=== PATIENT | female | born 1975 | race Caucasian/White ===

== ENCOUNTER 2016-12-25 14:47 | Outpatient (CLI) | payer MEDICAID | END 2016-12-25 14:48 | disposition home or self-care (01) | DX: M25.511 Pain in right shoulder (principal); M25.811 Other specified joint disorders, right shoulder ==

== ENCOUNTER 2017-11-19 08:00 | Outpatient (CLI) | payer MEDICAID, OTHER ==
[2017-11-19 19:11] LABS: HGB - HEMOGLOBIN 13.2 g/dL (12.0-16.0); MEAN CORPUSCULAR HEMOGLOBIN 30.1 pg (27.0-31.0); MEAN CORPUSCULAR HGB CONC 33.6 g/dL (32.0-36.0); MEAN CORPUSCULAR VOLUME 89.5 fL (81.0-99.0); MEAN PLATELET VOLUME 8.8 fL (7.9-10.8); RED BLOOD COUNT 4.38 10^6/uL (4.20-5.40); RED CELL DISTRIBUTION WIDTH 13.3 % (12.0-15.0); WHITE BLOOD COUNT 6.3 x10^3/uL (4.8-10.8)
[2017-11-19 19:31] LABS: RHEUMATOID FACTOR NEGATIVE (Negative)
[2017-11-19 19:36] LABS: URIC ACID 3.5 mg/dL (2.6-7.2)
== END 2017-11-19 08:01 | disposition home or self-care (01) ==
LOC: LAB.WCP 08:00
PROVIDERS: ATTEND Family Medicine
DX: M25.50 Pain in unspecified joint (principal)
CPT/HCPCS: 36415; 84550; 85651; 86140; 86200; 86430

== ENCOUNTER 2017-12-01 16:34 | Outpatient (CLI) | payer OTHER ==
--- NOTE | 2017-12-02 15:46 | MRI Report ---
EXAM: MRI CERVICAL SPINE WITHOUT CONTRAST EXAM DATE: 12/01/2017 05:06 PM. CLINICAL HISTORY: Cervical disk disorder with myelopathy. COMPARISONS: MRI cervical spine 02/23/2016 TECHNIQUE: Multiplanar, multisequence T1-weighted and fluid-sensitive sequences of the cervical spine without contrast. Other: None. FINDINGS: Neurologic Structures: The visualized posterior fossa structures are unremarkable. No signal abnormal ity in the visualized spinal cord. Alignment: Redemonstration straightening normal cervical lordosis. Grade 1 anterolisthesis C3 on C4 m easuring 3 mm. Bone Marrow: No gross fractures or bone lesions. No marrow edema. Redemonstration congenitally shallow central canal, with canal AP diameter measuring 10 mm at C3-C6 l evels and 11 mm at C7 level. Interspace Levels/Facets: C1-C2: Unremarkable. C2-C3: Moderate to severe left and moderate right facet arthropathy. No significant central canal cr rowing. Mild left foraminal narrowing. No right foraminal narrowing. No interval change. C3-C4: Mild diffuse disk bulge. Severe right facet arthropathy. Mgha-pw-mniwacyb central canal narrow ing with mild flattening of the cord, this is similar to prior study. Mild right foraminal narrowing. No left foraminal narrowing. No definite interval progression. C4-C5: Mild diffuse disk bulge. Xhlb-ye-cbbsquir right facet arthropathy. Hbcf-je-spnjdbfb central ca nal narrowing. No foraminal narrowing. No definite interval progression. C5-C6: Moderate disk height loss and desiccation. Moderate diffuse disk bulge with superimposed centr al disk protrusion measuring approximately 5 mm, slightly progressed, previously 4 mm. Moderate to se asha central canal narrowing with mass effect on flattening of the cord, slightly increased since the prior. Mild bilateral foraminal narrowing, this is similar. C6-C7: Mild diffuse disk bulge. Mild central canal narrowing. No foraminal narrowing. C7-t1: Unremarkable. Musculature: Normal. No edema or fatty atrophy. Other: The paravertebral and prevertebral soft tissues are normal. IMPRESSION: 1. Multilevel degenerative spondylosis, as detailed above and summarized below. Compared to the prior study from 02/23/2016, interval progression at C5-C6 level, which is also the most significant level . These degenerative changes are superimposed on congenitally shallow central canal, with canal AP di ameter measuring 10-11 mm at multiple cervical levels. 2. No acute fracture or malalignment. No bone marrow edema. No cord signal abnormality at any level. 3. C2-C3 level demonstrates no significant central canal narrowing. Mild left foraminal narrowing. No right foraminal narrowing. No interval change. 4. C3-C4 level demonstrates qaao-fh-dypvjcwx central canal narrowing with mild flattening of the cord , this is similar to prior study. Mild right foraminal narrowing. No left foraminal narrowing. No def inite interval progression. 5. C4-C5 level demonstrates vswj-ur-zzildmsj central canal narrowing. No foraminal narrowing. No defi nite interval progression. 6. C5-C6 level demonstrates moderate to severe central canal narrowing with mass effect on flattening of the cord, slightly increased since the prior. Mild bilateral foraminal narrowing, this is similar . 7. C6-C7 level demonstrates mild central canal narrowing. No foraminal narrowing. [facility] Referring Provider Line: [phone] SITE ID: [id number]
== END 2017-12-01 16:35 | disposition home or self-care (01) ==
LOC: DI 16:34
PROVIDERS: ATTEND Family Medicine
DX: M50.222 Other cervical disc displacement at C5-C6 level (principal); M50.31 Other cervical disc degeneration, high cervical region; M47.892 Other spondylosis, cervical region; M43.12 Spondylolisthesis, cervical region
CPT/HCPCS: 72141

== ENCOUNTER 2019-11-07 08:00 | Outpatient (CLI) | payer OTHER ==
[2019-11-07 12:25] LABS: BASOPHILS % (AUTO) 0.3 %; EOSINOPHILS # (AUTO) 0.1 10^3/uL (0.0-0.7); EOSINOPHILS % (AUTO) 1.5 %; HGB - HEMOGLOBIN 13.3 g/dL (12.0-16.0); LYMPHOCYTES # (AUTO) 2.5 10^3/uL (1.5-3.5); LYMPHOCYTES % (AUTO) 35.2 %; MEAN CORPUSCULAR HGB CONC 31.4 g/dL (32.0-36.0); MEAN CORPUSCULAR VOLUME 92.4 fL (81.0-99.0); MEAN PLATELET VOLUME 10.6 fL (7.9-10.8); MONOCYTES # (AUTO) 0.4 10^3/uL (0.0-1.0); NEUTROPHILS # (AUTO) 4.1 10^3/uL (1.5-6.6); NEUTROPHILS % (AUTO) 57.6 %; PLT - PLATELET COUNT 230 10^3/uL (130-450); RED BLOOD COUNT 4.59 10^6/uL (4.20-5.40); RED CELL DISTRIBUTION WIDTH 12.4 % (12.0-15.0); WHITE BLOOD COUNT 7.1 x10^3/uL (4.8-10.8)
[2019-11-07 13:07] LABS: HB2 TOTAL 13.8 g/dL; HEMOGLOBIN A1C 0.51 g/dL; HEMOGLOBIN A1C % 5.5 % (4.6-6.2)
[2019-11-07 13:19] LABS: FERRITIN 56.6 ng/mL (11.0-306.8)
[2019-11-07 13:44] LABS: % IRON SATURATION 19 % (20-50); ALBUMIN 4.1 g/dL (3.2-5.5); ALBUMIN/GLOBULIN RATIO 1.4 (1.0-2.2); ALKALINE PHOSPHATASE 51 IU/L (42-121); ALT ALANINE AMINOTRANSFERASE 14 IU/L (10-60); AST ASPARTATE AMINOTRANSFERASE 14 IU/L (10-42); BILIRUBIN,TOTAL 0.3 mg/dL (0.2-1.0); BUN - BLOOD UREA NITROGEN 13 mg/dL (6-20); CALCIUM 9.2 mg/dL (8.5-10.3); CARBON DIOXIDE - CO2 25 mmol/L (21-32); CHLORIDE 108 mmol/L (101-111); CHOLESTEROL 190 mg/dL; CREATININE 0.9 mg/dL (0.4-1.0); GFR - MDRD 67 (>89); GLUCOSE 107 mg/dL (70-100); HDL CHOLESTEROL 38 mg/dL; IRON 64 ug/dL (28-170); LDL CHOLESTEROL,CALCULATED 101 mg/dL; SODIUM 140 mmol/L (135-145); TOTAL IRON BINDING CAPACITY 330 ug/dL (250-450); TOTAL PROTEIN 7.1 g/dL (6.7-8.2); TRANSFERRIN 236 mg/dL (192-382); VLDL CHOLESTEROL 51 mg/dL
[2019-11-07 13:45] LABS: LDL/HDL RATIO 2.7 (<4.4)
== END 2019-11-07 23:59 | disposition home or self-care (01) ==
LOC: LAB.WCP 08:00
PROVIDERS: ATTEND Family Medicine
DX: I10 Essential (primary) hypertension (principal); E78.5 Hyperlipidemia, unspecified; D64.9 Anemia, unspecified; E66.9 Obesity, unspecified
CPT/HCPCS: 36415; 80053; 80061; 82728; 83036; 83540; 83721; 84443; 84466; 85025

== ENCOUNTER 2020-08-16 10:06 | Outpatient (CLI) | payer OTHER ==
[2020-08-16 10:18] LABS: BASOPHILS % (AUTO) 0.3 %; EOSINOPHILS # (AUTO) 0.1 10^3/uL (0.0-0.7); EOSINOPHILS % (AUTO) 1.9 %; HGB - HEMOGLOBIN 13.1 g/dL (12.0-16.0); LYMPHOCYTES # (AUTO) 2.2 10^3/uL (1.5-3.5); LYMPHOCYTES % (AUTO) 38.8 %; MEAN CORPUSCULAR HEMOGLOBIN 29.1 pg (27.0-31.0); MEAN CORPUSCULAR HGB CONC 32.3 g/dL (32.0-36.0); MEAN PLATELET VOLUME 9.8 fL (7.9-10.8); MONOCYTES # (AUTO) 0.5 10^3/uL (0.0-1.0); MONOCYTES % (AUTO) 8.6 %; NEUTROPHILS # (AUTO) 2.9 10^3/uL (1.5-6.6); NEUTROPHILS % (AUTO) 50.2 %; PLT - PLATELET COUNT 225 10^3/uL (130-450); RED CELL DISTRIBUTION WIDTH 12.2 % (12.0-15.0); WHITE BLOOD COUNT 5.7 x10^3/uL (4.8-10.8)
== END 2020-08-16 10:07 | disposition home or self-care (01) ==
LOC: LAB 10:06
PROVIDERS: ATTEND Orthopaedic Surgery
DX: Z01.812 Encounter for preprocedural laboratory examination (principal)
CPT/HCPCS: 36415; 85025

== ENCOUNTER 2020-11-20 13:38 | Outpatient (CLI) | payer OTHER ==
--- NOTE | 2020-11-20 16:48 | XRAY Report ---
PROCEDURE: Wrist 3 View RT INDICATIONS: R WRIST TENDONITIS TECHNIQUE: 3 views of the wrist were acquired. COMPARISON: None FINDINGS: Bones: No acute fractures or dislocations. No suspicious bony lesions. Mild degenerative changes n oted at the right thumb metacarpophalangeal joint and first carpometacarpal joint. Soft tissues: No suspicious soft tissue calcifications. IMPRESSION: Right wrist without acute fracture or dislocation. Mild degenerative changes of the right thumb metac arpophalangeal joint and first carpometacarpal joint. Reviewed by: Jesus Zambrano MD on 11/20/2020 4:46 PM PDT Approved by: Jesus Zambrano MD on 11/20/2020 4:46 PM PDT Station ID: [id number]
== END 2020-11-20 23:59 | disposition home or self-care (01) ==
LOC: DI.N 13:38
PROVIDERS: ATTEND Physician Assistant Medical
DX: M67.833 Other specified disorders of tendon, right wrist (principal); M18.11 Unilateral primary osteoarthritis of first carpometacarpal joint, right hand

== ENCOUNTER 2021-04-16 08:00 | Outpatient (CLI) | payer OTHER ==
[2021-04-16 18:11] LABS: BASOPHILS % (AUTO) 0.2 %; EOSINOPHILS # (AUTO) 0.1 10^3/uL (0.0-0.7); EOSINOPHILS % (AUTO) 1.5 %; HCT - HEMATOCRIT 37.9 % (37.0-47.0); HGB - HEMOGLOBIN 12.1 g/dL (12.0-16.0); LYMPHOCYTES # (AUTO) 2.4 10^3/uL (1.5-3.5); LYMPHOCYTES % (AUTO) 45.7 %; MEAN CORPUSCULAR HEMOGLOBIN 28.6 pg (27.0-31.0); MEAN CORPUSCULAR HGB CONC 31.9 g/dL (32.0-36.0); MEAN CORPUSCULAR VOLUME 89.6 fL (81.0-99.0); MEAN PLATELET VOLUME 10.6 fL (7.9-10.8); MONOCYTES # (AUTO) 0.3 10^3/uL (0.0-1.0); MONOCYTES % (AUTO) 6.5 %; NEUTROPHILS # (AUTO) 2.4 10^3/uL (1.5-6.6); NEUTROPHILS % (AUTO) 45.9 %; PLT - PLATELET COUNT 260 10^3/uL (130-450); RED BLOOD COUNT 4.23 10^6/uL (4.20-5.40); RED CELL DISTRIBUTION WIDTH 12.8 % (12.0-15.0); WHITE BLOOD COUNT 5.3 x10^3/uL (4.8-10.8)
[2021-04-16 18:39] LABS: % IRON SATURATION 15 % (20-50); ALBUMIN 4.6 g/dL (3.2-5.5); ALBUMIN/GLOBULIN RATIO 1.7 (1.0-2.2); ALKALINE PHOSPHATASE 57 IU/L (42-121); ALT ALANINE AMINOTRANSFERASE 26 IU/L (10-60); AST ASPARTATE AMINOTRANSFERASE 18 IU/L (10-42); BILIRUBIN,TOTAL 0.5 mg/dL (0.2-1.0); BUN - BLOOD UREA NITROGEN 16 mg/dL (6-20); CALCIUM 9.5 mg/dL (8.5-10.3); CARBON DIOXIDE - CO2 24 mmol/L (21-32); CHLORIDE 107 mmol/L (101-111); CHOL/HDL RATIO 3.3 (<4.4); CHOLESTEROL 166 mg/dL; CREATININE 0.8 mg/dL (0.4-1.0); GFR - MDRD 77 (>89); GLUCOSE 89 mg/dL (70-100); HDL CHOLESTEROL 51 mg/dL; IRON 51 ug/dL (28-170); LDL CHOLESTEROL,CALCULATED 78 mg/dL; LDL/HDL RATIO 1.5 (<4.4); SODIUM 139 mmol/L (135-145); TOTAL IRON BINDING CAPACITY 344 ug/dL (250-450); TOTAL PROTEIN 7.3 g/dL (6.7-8.2); TRANSFERRIN 246 mg/dL (192-382); TRIGLYCERIDES 183 mg/dL; VLDL CHOLESTEROL 37 mg/dL
[2021-04-16 18:53] LABS: THYROID STIMULATING HORMONE 1.59 uIU/mL (0.34-5.60)
== END 2021-04-16 23:59 | disposition home or self-care (01) ==
LOC: LAB.WCP 08:00
PROVIDERS: ATTEND Family Medicine
DX: I10 Essential (primary) hypertension (principal); E78.5 Hyperlipidemia, unspecified; D64.9 Anemia, unspecified; R53.83 Other fatigue
CPT/HCPCS: 36415; 80053; 80061; 82607; 82728; 83540; 83721; 84443; 84466; 85025

== ENCOUNTER 2021-07-24 13:21 | Outpatient (CLI) | payer OTHER ==
--- NOTE | 2021-07-25 09:21 | Mammography Report ---
BILATERAL DIGITAL SCREENING MAMMOGRAM 3D/2D: 07/24/2021 CLINICAL: Routine screening. Comparison is made to exams dated: 09/05/2016 mammogram - [facility] and 05/25/2015 mammogram - [facility]. There are scattered fibroglandular elements in both breasts. No significant masses, calcifications, or other findings are seen in either breast. There has been no significant interval change. IMPRESSION: NEGATIVE There is no mammographic evidence of malignancy. A 1 year screening mammogram is recommended. This exam was interpreted at Station ID: [id number]. NOTE: For mammograms, a report in lay terms will be sent to the patient. Approximately 15% of breast malignancies will not be visualized mammographically. In the management of a palpable breast mass, a negative mammogram must not discourage biopsy of a clinically suspicious lesion. Electronically Signed By: Kian Burks M.D. ar/penrad:07/24/2021 15:30:29 ACR BI-RADS Category 1: Negative 3341F PARENCHYMAL PATTERN: (A) - The breast(s) demonstrate(s) scattered fibroglandular densities. BI-RADS CATEGORY: (1) - 1 RECOMMENDATION: (ANNUAL) - Recommend routine annual screening mammography. [id number] 1 year screening LATERALITY: (B)
== END 2021-07-24 13:22 | disposition home or self-care (01) ==
LOC: DI.N 13:21
DX: Z12.31 Encounter for screening mammogram for malignant neoplasm of breast (principal)

== ENCOUNTER 2021-10-23 13:27 | Outpatient (CLI) | payer OTHER ==
--- NOTE | 2021-10-23 14:27 | SLEEP CARE CONSULTATION ---
Information from patient questionnaire entered by Satish Talbot MA. I have reviewed and concur with the information entered by Satish Talbot MA. This document represents the service I personally performed and the decisions made by , Kamilla Downing ARNP. History of Present Illness Service Date and Time: 10/23/2021 1327 Reason for Visit: New patient (ONSET 09/2011, PRIOR WAS BOARDERLINE) Accompanied by: Spouse Chief Complaint: reports: Unrefreshed sleep, Snoring, Observed pauses in breathing, Fatigue, Frequent awakenings at night Date of Onset: since childhood Usual bedtime: 11:00 Time it takes to fall asleep: mathew, fast Snores at night: Yes Observed to quit breathing while asleep: Yes Sleeps alone due to snoring: No Number of times waking at night: unknown Reasons for waking at night: reports: Choking, Snoring, Gasping for air, Pain, Other (blowing air) Toss, Turn, or Twitch while sleeping: Yes Recalls having dreams: Yes (sometimes) Usually gets out of bed at: 0700 Feels refreshed in the morning: No Morning headache: Yes (sometimes) Sleepy or fatigued during the day: Yes Ever fallen asleep while driving: No Takes day naps: Yes (sometimes) Dreams during day naps: Yes Prior sleep studies: Yes Year and Where: [place], a long time ago Additional HPI information: I had the pleasure of seeing HOPE MICHELLE today regarding the possibility of her having a sleep disorder. Her current complaints are fatigue, frequent night awakening, observed pauses in breathing, snoring and unrefreshed sleep. The patient tells me that she normally goes to bed around 11 pm, and it takes her approximately 1-2 minutes to fall asleep. She has been told that she snores loudly and irregularly at night. She has been observed to stop breathing in her sleep. Her bed partner can still sleep in the same bed. She cannot recall waking up during the night. She has occasionally awakened for her own snoring, choking, burst of air from mouth and having to gasp for air. There is a lot of tossing and turning in her sleep. Generally she can recall having dreams. She has PTSD and nightmares. She usually wakes up at 0700 and does not feel refreshed. She usually does have a morning headache. During the day she complains of feeling sleepy and fatigued. She has never fallen asleep while driving nor has any accident due to sleepiness. She rarely takes a nap but if she does nap for about 1-3 hours during the day. If she naps, upon falling asleep during the day she admits to having vivid dreams. She feels that her dreams are convoluted dreams at night but nap dreams are normal. She reports having impaired concentration during the day. There is somniloquy (sleep talking) but no somnambulism (sleep walking). She has never experienced sleep paralysis. 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 Patient is and lives in [place]. Have you smoked in the past 12 months: No Cigarettes per day (20/pack): 20 Years of smokin Quit date: 1.5 years ago Smoking Pack Years: 30.0 Alcohol use: Yes Alcohol amount and frequency: a few new years jordana Caffeine use: Yes Caffeine amount and frequency: 4-5 cups until 1-2 PM Family History Family history of sleep disordered breathing: No Allergies and Home Medications Drug allergies reviewed: Yes (see list in chart) Home medication list reviewed: Yes Allergy and home medication list: Allergies acetaminophen [From Percocet] Allergy (Verified 02/22/14 17:23) Rash codeine Allergy (Verified 02/22/14 17:22) Respiratory diphenhydramine HCl * [From Benadryl] Allergy (Verified 02/22/14 17:22) Itching oxycodone HCl * [From Percocet] Allergy (Verified 02/22/14 17:23) Rash Penicillins Allergy (Verified 02/22/14 17:22) Rash morphine Adverse Reaction (Verified 02/22/14 17:23) Unknown Medications Updated in chart Review of Systems Weight gain over past 5 years: 40 Cardiovascular: reports: leg or foot swelling Respiratory: reports: shortness of breath Gastrointestinal: reports: heartburn, difficulty swallowing (while drinking sometimes) Urinary: reports: other (difficult) Neurological: reports: headaches Psychiatric: reports: Attention Deficit Hyperactivity (?), anxiety, depression Ear/Nose/Throat: reports: nasal congestion, dry mouth/throat, wisdom teeth removed. denies: tonsillectomy Endocrine: reports: sluggishness, too hot or cold, increased appetite, unexplained weakness Musculoskeletal: reports: joint pain, neck pain, mobility problems Immunologic: reports: sneezing, allergies to food or environment (catfish ) Physical Exam Vital signs obtained and entered by: AMBERLY Baez Blood Pressure: 127/70 (right) Cuff size: wrist Heart Rate: 94 O2 Saturation: 96 Height: 5 ft 5 in Weight: 230 lb Body Mass Index: 38.2 BMI Classification: Obese Neck circumference: 15.1 (inches) Nostrils: patent to airflow Mouth and throat: narrow oropharynx Soft palate: long Uvula: normal Uvula visualization: 50% Mallampati Class II Tongue: enlarged in size with teeth howard on lateral edges Tonsils: 1+ Neck: normal w/o lymphadenopathy or thyromegaly Heart: regular rate and rhythm Lungs: clear bilaterally Impression and Plan 1. Suspected Obstructive Sleep Apnea-Hypopnea Syndrome, as suggested by a history of loud and irregular snoring, observed cessation of breath while asleep, gasping or choking in sleep, morning headache, unrefreshed sleep, cognitive impairment, and excessive daytime sleepiness. Narrow oropharynx and obesity are common predisposing factors for obstructive sleep apnea-hypopnea syndrome. I recommend proceeding to polysomnography to confirm the diagnosis and to assess severity. If the patient has significant sleep disordered breathing, a manual CPAP titration study will also be performed to find the optimal treatment pressure. I informed the patient of what the sleep studies involve and after some discussion, obtained agreement to proceed. The pathophysiology of obstructive sleep apnea-hypopnea syndrome was discussed with the patient and health risks of cardiovascular and cerebrovascular disease if not treated. AAS brochure for obstructive sleep apnea-hypopnea syndrome given and reviewed. Risks of drowsy driving discussed in detail and patient advised to avoid long distance driving and to bleach boiler puller at the first sign of drowsiness. Patient agreed to plan. * Schedule polysomnography +- manual CPAP titration study and return in 1-2 weeks after the study to discuss result and initiate therapy. * Avoid long distance driving or driving when feeling sleepy. * Avoid alcohol, sedative and muscle relaxant around bedtime. * Attempt to lose weight. * Review instructions provided by trained office staff on how to prepare for the sleep study. * Return for follow-up after sleep study completed. Counseling Topics: Weight loss health impact Visit Type: In Office Other Participants: Spouse/Significant Other Time Spent with Patient (minutes): 44 Provider Statement: I spent 100% of the Face to Face Visit with the patient with greater than 50% spent counseling the patient and coordination of care.
[2021-10-23 14:28] VITALS: BP 127/70
== END 2021-10-23 13:28 | disposition home or self-care (01) ==
LOC: SC 13:27
PROVIDERS: ATTEND Nurse Practitioner Family
DX: G47.10 Hypersomnia, unspecified (principal); R06.83 Snoring; G47.8 Other sleep disorders; R51.9 Headache, unspecified; R41.89 Other symptoms and signs involving cognitive functions and awareness; E66.9 Obesity, unspecified; Z68.38 Body mass index [BMI] 38.0-38.9, adult
CPT/HCPCS: 99203; 99212

== ENCOUNTER 2021-11-12 19:33 | Outpatient (CLI) | payer OTHER | END 2021-11-12 19:34 | disposition home or self-care (01) | LOC: SC 19:33 | PROVIDERS: ATTEND Nurse Practitioner Family | DX: G47.33 Obstructive sleep apnea (adult) (pediatric) (principal) | CPT/HCPCS: 95810 ==

== ENCOUNTER 2021-11-28 14:14 | Outpatient (CLI) | payer OTHER ==
--- NOTE | 2021-11-28 14:54 | SLEEP CARE CONSULTATION ---
Information from patient questionnaire entered by Satish Talbot MA. I have reviewed and concur with the information entered by Satish Talbot MA. This document represents the service I personally performed and the decisions made by , Kamilla Downing ARNP. History of Present Illness Service Date and Time: 11/28/2021 1414 Initial [place] Sleepiness Scale score: 5 (2021) Current [place] Sleepiness Scale score: 6 (11/2021) Additional HPI information: HOPE MICHELLE returns for follow up and results of the recently performed polysomnography. I explained the pathophysiology behind obstructive sleep apnea. We then spent quite a bit of time discussing different treatment options. For mild obstructive sleep apnea, surgery and oral appliance are alternatives to nasal CPAP therapy but in moderate or severe cases, nasal CPAP is the most effective and reliable treatment. Because apnea is primarily in supine position, then positional management therapy could be effective. Methods discussed such as positioning with pillows to prevent supine sleep. I reviewed the impact of weight changes on sleep apnea and strongly recommended losing weight. After some discussion, the patient opted to go with the nasal CPAP therapy. Nasal autoCPAP set at 4-15 cmH20 will be ordered with rationale explained. A manual titration study will be ordered if unable to find optimal pressure with office adjustments. I explained how CPAP machine works and what to expect when using the machine. Using CPAP every night in order to get used to it was emphasized. Patient advised to put CPAP mask on before getting into bed so as not to fall asleep without CPAP. To assist acclimation to CPAP use, it could also be used for a short time during day while reading or watching TV. The patient was instructed to call the CPAP supplier to discuss any mechanical problem that may occur. If the mask given is uncomfortable or is difficult to keep on through the night even with adjustment, contact the CPAP supplier as many will replace with another mask style if notified before 30 days. If snoring or perceives is not getting enough air or too much air from the machine, notify this office. AASM patient education PAP tips reviewed and given to patient. Patient does not drink alcohol. Patient was cautioned about risks of drowsy driving until sleepiness symptoms resolve. Sleep Study - Results Type of Sleep Study: Polysomnography (F/U POLY DONE 11/12/2021 [facility]) Prior sleep studies: Yes Year and Where: [place], a long time ago Polysomnography/Home Sleep Study results: IMPRESSION: The quality of the study is good. The patient had normal sleep efficiency. The sleep architecture was abnormal for sleep fragmentation and reduced amount of time spent in REM and slow wave sleep (N3). Respiratory monitoring showed moderate obstructive sleep apnea-hypopnea (AHI = 23.4) associated with frequent arousals, oxyhemoglobin desaturation and moderate hypoxia (shraddha oxygen saturation of 77%). The patient did not sleep supine during this study (supine AHI = 0.0; non-supine = 23.60). Snore was light to moderate in intensity. There was no significant periodic leg movement of sleep. Cardiac rhythm was normal sinus rhythm without significant arrhythmia. No abnormal behavior (parasomnia) observed during the n ight. Allergies and Home Medications Known drug allergies: Yes (DANIELAIENE, ) Home medication list reviewed: Yes (no changes) Allergy and home medication list: Allergies acetaminophen [From Percocet] Allergy (Verified 02/22/14 17:23) Rash codeine Allergy (Verified 02/22/14 17:22) Respiratory diphenhydramine HCl * [From Benadryl] Allergy (Verified 02/22/14 17:22) Itching oxycodone HCl * [From Percocet] Allergy (Verified 02/22/14 17:23) Rash Penicillins Allergy (Verified 02/22/14 17:22) Rash morphine Adverse Reaction (Verified 02/22/14 17:23) Unknown Review of Systems Review of systems same as previous: Yes (no changes) Physical Exam Vital signs obtained and entered by: Cecile TALBOT CMA [facility] Blood Pressure: 132/79 (RIGHT, PULSE 90, RESP 16,) Cuff size: wrist Heart Rate: 88 O2 Saturation: 96 (N95) Height: 5 ft 5 in Weight: 230 lb Weight change since last visit: LOST 5 LBS, TRYING TO LOOSE Body Mass Index: 38.2 BMI Classification: Obese Impression and Plan 1. Obstructive Sleep Apnea-Hypopnea Syndrome, moderate, with lowest oxygen saturation of 77%. Obviously this is the cause of the patients symptoms of unrefreshed sleep, and excessive daytime sleepiness. Positive pressure therapy could benefit fibromyalgia, anxiety, depression and gastric reflux. As mentioned above, the patient will be started on nasal autoCPAP therapy with pressure set at 4-15 cmH2O. Compliance guidelines also reviewed. A copy of compliance guidelines will be given for reference at check out. 2. Hypoxemia, moderate, patient's shraddha oxygen saturation was 77% with 24.6 minutes with SaO2 under 90%. Her baseline oxygen was normal with an average oxygen saturation of 91%. * Nasal auto CPAP therapy, pressure at 415 cm H2O. * Attempt to lose weight. * Avoid alcohol consumption near bedtime. * Avoid supine sleep until using CPAP. * The patient is again cautioned about driving until sleepiness completely resolves. * Return one month after CPAP obtained. I will assess response to therapy and compliance at that time. Counseling Topics: Weight loss health impact Visit Type: In Office Time Spent with Patient (minutes): 20 Provider Statement: I spent 100% of the Face to Face Visit with the patient with greater than 50% spent counseling the patient and coordination of care.
[2021-11-28 14:55] VITALS: BP 132/79
== END 2021-11-28 14:15 | disposition home or self-care (01) ==
LOC: SC 14:14
PROVIDERS: ATTEND Nurse Practitioner Family
DX: G47.33 Obstructive sleep apnea (adult) (pediatric) (principal); R09.02 Hypoxemia; E66.9 Obesity, unspecified; Z68.38 Body mass index [BMI] 38.0-38.9, adult
CPT/HCPCS: 99212; 99213

== ENCOUNTER 2022-07-24 14:35 | Outpatient (CLI) | payer OTHER ==
--- NOTE | 2022-07-24 14:30 | SLEEP CARE CONSULTATION ---
Information from patient questionnaire entered by Katya Simmons. I have reviewed and concur with the information entered by Katya Simmons. This document represents the service I personally performed and the decisions made by me, Kamilla Downing ARNP. History of Present Illness Service Date and Time: 07/24/2022 1435 Previous diagnosis: Moderate, Obstructive Sleep Apnea-Hypopnea Syndrome AHI: 23.4 Reason for follow up: three month (F/U ) Equipment type: CPAP (RESMED) Equipment obtained from: [employer] (getting supplies) Mask style: Nasal (Airfit N30i with chin strap) Mask brand: Respironics (likes the Dreamwear full face mask better) Backup mask available: Yes (other mask) Prior sleep studies: Yes Year and Where: [place], a long time ago Type of Sleep Study: Polysomnography (F/U POLY DONE 11/12/2021 [facility]) HPI additional information: HOPE MICHELLE was diagnosed to have moderate, AHI 23.4, obstructive sleep apnea- hypopnea syndrome and returned today for CPAP therapy three month follow-up. Sleep Study - Results Type of Sleep Study: Polysomnography (F/U POLY DONE 11/12/2021 [facility]) Prior sleep studies: Yes Year and Where: [place], a long time ago CPAP Compliance Data - Data Reviewed with Patient Average duration of nightly device use: 7 HRS, 9 MIN Compliance rate %: 80 (04/23/2022-07/21/2022; 80/90 days used) Current pressure setting (cmH2O): 10-12 Average residual AHI: 4.3 Central apnea: 0.5 Obstructive apnea: 3.1 Average large leak: 2.1 lpm Subjective Missed days of use due to: reports: mask issues, other (taken off while asleep) Patient concerns: reports: mask discomfort, air blowing in eyes (sometimes), mask leak noise. denies: aerophagia, condensation in mask/hose, nasal congestion, dry mouth, nose, throat, epistaxis Observed to snore while using device: No Current pressure setting perceived as: comfortable On therapy, patient: reports: sleeping better, awakening more refreshed, being more awake and alert during the day, more rested overall. denies: drowsiness while driving Initial [place] Sleepiness Scale score: 5 (2021) Current [place] Sleepiness Scale score: 9 Allergies and Home Medications Drug allergies reviewed: Yes (as listed in EMR) Home medication list reviewed: Yes (no changes) Review of Systems Review of systems same as previous: Yes (no changes) Physical Exam Vital signs obtained and entered by: KATYA العلي MA Blood Pressure: 128/82 (LEFT ARM) Cuff size: regular Heart Rate: 81 O2 Saturation: 98 Height: 5 ft 5 in Weight: 229 lb 6.4 oz Body Mass Index: 38.1 BMI Classification: Obese Impression and Plan 1. Obstructive Sleep Apnea-Hypopnea Syndrome, moderate, with good treatment compliance and good apnea control. On CPAP therapy, the patient has better sleep quality and is more rested overall. Patient still having mask issues. She has tried multiple types of masks to find the right fit without mask leaking. She thinks a full face is better for her. She tried the hybrid fullface [employer] DreamWear mask but felt it kept slipping down her chin causing leaks from the top of the mask. She has been using the medium cushion. I found a small cushion and she felt it fit her mouth much better. I gave her a replacement cushion, size small to take home. If this does not work she may use her second choice nasal pillows mask with mouth strips. She has a chin strap but it pulls out her hair in the morning. She is determined to use her CPAP and wants to get the right mask fit. She confided that her PTSD symptoms have been improving with using her CPAP. Patient's apnea severity and rationale for treatment to reduce apnea, improve sleep quality and reduce cardiovascular and cerebrovascular events was reviewed. I also reviewed the benefit of consistent device use of CPAP for gastric reflux, depression, anxiety and fibromyalgia. 2. Obesity, unspecified. Currently patients BMI is 38.1. Obesity increases the risk of apnea, CPAP pressure requirements and overall health risks especially cardiovascular and diabetes. Thus patient is advised to continue to try to lose weight. * Continue auto CPAP pressure at 10-12 cmH2O * Notify me if snoring with mask or feeling that the pressure is too much or too little * Attempt to lose weight * Call this office if any problems using CPAP * Return for follow up in 6 months, or sooner if concerns arise Mask provided: Yes Counseling Topics: Spare mask, Weight loss health impact Visit Type: In Office Time Spent with Patient (minutes): 26 Provider Statement: I spent 100% of the Face to Face Visit with the patient with greater than 50% spent counseling the patient and coordination of care.
[2022-07-24 14:31] VITALS: BP 128/82
== END 2022-07-24 14:36 | disposition home or self-care (01) ==
LOC: SC 14:35
PROVIDERS: ATTEND Nurse Practitioner Family
DX: G47.33 Obstructive sleep apnea (adult) (pediatric) (principal); E66.9 Obesity, unspecified; Z68.38 Body mass index [BMI] 38.0-38.9, adult
CPT/HCPCS: 99212; 99213

== ENCOUNTER 2022-08-22 08:00 | Outpatient (CLI) | payer OTHER ==
[2022-08-22 23:20] LABS: BACTERIAL VAGINOSIS DNA POSITIVE (NEGATIVE); CANDIDA GLABRATA DNA NEGATIVE (NEGATIVE); CANDIDA GROUP DNA NEGATIVE (NEGATIVE); CANDIDA KRUSEI DNA NEGATIVE (NEGATIVE); TRICHOMONAS VAGINALIS DNA NEGATIVE (NEGATIVE)
== END 2022-08-22 23:59 | disposition home or self-care (01) ==
LOC: LAB.N 08:00
PROVIDERS: ATTEND Nurse Practitioner
DX: R30.0 Dysuria (principal)
CPT/HCPCS: 81514; 87077; 87086; 87181

== ENCOUNTER 2022-09-30 17:50 | Outpatient (CLI) | payer OTHER ==
[2022-09-30 20:31] LABS: CALCIUM 10.2 mg/dL (8.5-10.3); POTASSIUM 3.8 mmol/L (3.5-5.0)
== END 2022-09-30 17:51 | disposition home or self-care (01) ==
LOC: LAB.N 17:50
PROVIDERS: ATTEND Physician Assistant
DX: Z51.81 Encounter for therapeutic drug level monitoring (principal)
CPT/HCPCS: 36415; 80048

== ENCOUNTER 2022-10-24 11:48 | Day surgery (SDC) | payer OTHER ==
[2022-10-24] MEDS ORDERED: LACTATED RINGERS 1,000 ML IV ONE (11:56)
[2022-10-24 12:19] LABS: HCG UR QUAL NEGATIVE
[2022-10-24] MEDS ORDERED: PROPOFOL 500 MG/50 ML 500 MG/50 ML VIAL ONE (13:37)
--- NOTE | 2022-10-24 13:42 | ANESTHESIA ---
Pre-Anesthesia VS, & Labs - Diagnosis screening - Procedure colonoscopy Vital Signs: Temp Pulse Resp BP Pulse Ox O2 Flow Rate 36.5 C 85 18 126/75 97 10/24/22 12:06 10/24/22 12:06 10/24/22 12:06 10/24/22 12:06 10/24/22 12:06 Height: 5 ft 5 in Weight (kg): 101 kg Body Mass Index: 37.0 BMI Classification: Obese - NPO >8 hours - Is Patient ?: No Home Medications and Allergies Home Medications: Ambulatory Orders Acetaminophen [Tylenol Arthritis] 1 tab PO DAILY 10/23/22 Cholecalciferol (Vitamin D3) [Vitamin D3] 1 cap PO DAILY 10/23/22 Gabapentin [Neurontin] 1 cap PO DAILY 10/23/22 Meloxicam [Mobic] 1 tab PO BID 10/23/22 Prazosin [Minipress] 1 cap PO DAILY 10/23/22 SUMAtriptan [Imitrex] 50 mg PO PRN PRN 10/23/22 amLODIPine [Norvasc] 1 tab PO DAILY 10/23/22 hydroCHLOROthiazide [Hydrodiuril] 1 tab PO PRN PRN 10/23/22 Bupropion HCl [Wellbutrin] 150 mg PO BID 02/22/14 Cetirizine HCl [Zyrtec] 1 cap PO PRN PRN 02/22/14 Citalopram Hydrobromide [Celexa] 20 mg PO DAILY 02/22/14 Cyclobenzaprine [Flexeril] 10 mg PO QPM 02/22/14 Lovastatin 40 mg PO DAILY 02/22/14 Omeprazole [Prilosec] 20 mg PO QPM 02/22/14 Acetaminophen [Tylenol Arthritis] 1 tab PO DAILY 10/23/22 Cholecalciferol (Vitamin D3) [Vitamin D3] 1 cap PO DAILY 10/23/22 Gabapentin [Neurontin] 1 cap PO DAILY 10/23/22 Meloxicam [Mobic] 1 tab PO BID 10/23/22 Prazosin [Minipress] 1 cap PO DAILY 10/23/22 SUMAtriptan [Imitrex] 50 mg PO PRN PRN 10/23/22 amLODIPine [Norvasc] 1 tab PO DAILY 10/23/22 hydroCHLOROthiazide [Hydrodiuril] 1 tab PO PRN PRN 10/23/22 Allergies/Adverse Reactions: Allergies Allergy/AdvReac Type Severity Reaction Status Date / Time codeine Allergy Respiratory Verified 10/23/22 13:11 diphenhydramine HCl * Allergy Itching Verified 10/23/22 13:11 [From Benadryl] Penicillins Allergy Rash Verified 10/23/22 13:11 morphine AdvReac Unknown Verified 10/23/22 13:11 Anes History & Medical History - Anesthetic History Anesthesia Complications: reports: No previous complications - Medical History Cardiovascular: reports: High cholesterol Pulmonary: reports: Sleep apnea, CPAP use Gastrointestinal: reports: GERD, Chronic constipation Urinary: reports: None Musculoskeletal: reports: Osteoarthritis, Fibromyalgia Endocrine/Autoimmune: reports: None Blood Disorders: reports: Anemia Skin: reports: None Smoking Status: Current every day smoker - Surgical History General: reports: Appendectomy Gynecologic: reports: LEEP (Cervical surgery) Exam General: Alert, Oriented x3 Dental: WNL Mouth Opening: Greater than 4 Fingerbreadths Mallampati classification: II Thyromental Distance: greater than 6 cm Respiratory: Lungs clear Cardiovascular: Regular rate Plan Anesthesia Type: Total IV Consent for Procedure(s) Verified and Reviewed: Yes Code Status: Attempt Resuscitation ASA classification: 2-Mild systemic disease Is this case an emergency?: No
[2022-10-24] MEDS ORDERED: ACETAMINOPHEN 1,000 MG/100 ML 1,000 MG/100 ML BAG IV ONE (14:15)
[2022-10-24] MEDS ORDERED: LIDOCAINE-MPF 2% 5 ML VIAL ONE (14:25)
[2022-10-24] MEDS ORDERED: PROPOFOL 200 MG/20 ML VIAL IVP ONE (14:37)
[2022-10-24] MEDS ORDERED: LACTATED RINGERS 500 ML IV ONE (14:58)
--- NOTE | 2022-10-24 15:18 | ANESTHESIA POST OP EVALUATION ---
Anesthesia Post Eval - Post Anesthesia Eval Vitals: Last Vital Signs Temp 36.6 C 10/24/22 14:58 Pulse 78 10/24/22 15:08 Resp 16 10/24/22 15:08 BP 115/75 10/24/22 15:08 Pulse Ox 94 10/24/22 15:08 O2 Flow Rate CV Function Including HR & BP: Stable Pain Control: Satisfactory Nausea & Vomiting: Negative Mental Status: Baseline Respiratory Status: Airway Patent Hydration Status: Satisfactory Anesthesia Complications: None
[2022-10-24 15:26] VITALS: BP 122/64
== END 2022-10-24 11:49 | disposition home or self-care (01) ==
LOC: SDS 11:48
PROVIDERS: ATTEND Surgery
DX: Z12.11 Encounter for screening for malignant neoplasm of colon (principal); E66.9 Obesity, unspecified; Z68.37 Body mass index [BMI] 37.0-37.9, adult; G47.30 Sleep apnea, unspecified; F17.200 Nicotine dependence, unspecified, uncomplicated; K59.09 Other constipation
CPT/HCPCS: 45378; 81025; J0131; J7120

== ENCOUNTER 2022-12-04 13:57 | Outpatient (CLI) | payer OTHER ==
--- NOTE | 2022-12-04 19:03 | Ultrasound Report ---
PROCEDURE: Carotid Doppler Complete INDICATIONS: CAROTID ARTERIAL DISEASE TECHNIQUE: Color and pulse Doppler interrogation was performed of both carotid systems, with image documentation and velocity measurements. COMPARISON: None. FINDINGS: Right side: Brachial blood pressure: 122/72 mm Hg. Common carotid artery peak systolic velocity: 76 cm/sec. Internal carotid artery peak systolic velocity: 77 cm/sec. Internal carotid artery end diastolic velocity: 26 cm/sec. External carotid artery peak systolic velocity: 92 cm/sec. ICA/CCA peak systolic ratio: 1.01. Jacobsen scale imaging description: Mild calcified plaque. Percent internal carotid artery stenosis: Less than 50% stenosis. Vertebral artery: Flow direction is antegrade. Left side: Brachial blood pressure: 119/66 mm Hg. Common carotid artery peak systolic velocity: 96 cm/sec. Internal carotid artery peak systolic velocity: 78 cm/sec. Internal carotid artery end diastolic velocity: 33 cm/sec. External carotid artery peak systolic velocity: 101 cm/sec. ICA/CCA peak systolic ratio: 0.81. Jacobsen scale imaging description: No significant plaque. Percent internal carotid artery stenosis: Less than 50% stenosis. Vertebral artery: Flow direction is antegrade. IMPRESSION: Less than 50% stenosis in the bilateral ICA. The estimate of stenosis included in the report of the imaging study was calculated using the NASCET method Reviewed by: Jarret Salinas MD on 12/04/2022 7:01 PM PDT Approved by: Jarret Salinas MD on 12/04/2022 7:01 PM PDT Station ID: [id number]
== END 2022-12-04 13:58 | disposition home or self-care (01) ==
LOC: DI 13:57
PROVIDERS: ATTEND Physician Assistant
DX: I65.23 Occlusion and stenosis of bilateral carotid arteries (principal)
CPT/HCPCS: 93880

== ENCOUNTER 2023-02-25 14:20 | Outpatient (CLI) | payer OTHER ==
--- NOTE | 2023-02-25 15:00 | SLEEP CARE CONSULTATION ---
Information from patient questionnaire entered by Katya Simmons. I have reviewed and concur with the information entered by Katya Simmons. This document represents the service I personally performed and the decisions made by , Kamilla Downing ARNP. History of Present Illness Service Date and Time: 02/25/2023 1420 Previous diagnosis: Moderate, Obstructive Sleep Apnea-Hypopnea Syndrome AHI: 23.4 Reason for follow up: other (7 MONTH F/U) Equipment type: CPAP (RESMED 11, ) Equipment obtained from: [employer] (getting supplies as needed) Mask style: Nasal (N20) Prior sleep studies: Yes Year and Where: [facility], a long time ago Type of Sleep Study: Polysomnography (F/U POLY DONE 11/12/2021 [facility]) HPI additional information: HOPE MICHELLE was diagnosed to have moderate, AHI 23.4, obstructive sleep apnea- hypopnea syndrome and returned today for CPAP therapy seven month follow-up. Sleep Study - Results Type of Sleep Study: Polysomnography (F/U POLY DONE 11/12/2021 [facility]) Prior sleep studies: Yes Year and Where: [facility], a long time ago CPAP Compliance Data - Data Reviewed with Patient Average duration of nightly device use: 6 hours Compliance rate %: 41 (97/180 days used) Current pressure setting (cmH2O): 10-12 Average residual AHI: 2.8 Central apnea: 0.7 Obstructive apnea: 1.8 Hypopnea: 0.2 Average large leak: 2.1 L/min Subjective Missed days of use due to: reports: mask issues (mask coming off head and sores on nose) Patient concerns: reports: mask discomfort, mask leak noise, nasal congestion, other (headache and sores on nose). denies: aerophagia, air blowing in eyes, condensation in mask/hose, dry mouth, nose, throat Observed to snore while using device: No Current pressure setting perceived as: comfortable On therapy, patient: reports: sleeping better, awakening more refreshed, being more awake and alert during the day, more rested overall. denies: drowsiness while driving Initial [place] Sleepiness Scale score: 5 (2021) Current [place] Sleepiness Scale score: 8 (02/25/23) Allergies and Home Medications Known drug allergies: Yes (as listed) Drug allergies reviewed: Yes Home medication list reviewed: Yes (no changes) Allergy and home medication list: Allergies codeine Allergy (Verified 02/24/23 14:55) Respiratory diphenhydramine HCl * [From Benadryl] Allergy (Verified 02/24/23 14:55) Itching Penicillins Allergy (Verified 02/24/23 14:55) Rash morphine Adverse Reaction (Verified 02/24/23 14:55) Unknown Review of Systems Review of systems same as previous: No (plaque in right artery on neck) Physical Exam Vital signs obtained and entered by: KATYA العلي MA Blood Pressure: 120/78 (LEFT ARM) Cuff size: regular Heart Rate: 82 O2 Saturation: 98 Height: 5 ft 5 in Weight: 233 lb 12.8 oz Body Mass Index: 38.9 BMI Classification: Obese Impression and Plan 1. Obstructive Sleep Apnea-Hypopnea Syndrome, moderate, with fair treatment compliance and good apnea control. On CPAP therapy, the patient has better sleep quality and is more rested overall. She continues to have struggles with her mask. She is using a nasal mask, N20, that she likes but it is causing soreness on her skin around her nose and the headgear will not tighten adequately because if feels too large and there is not a smaller size. She has had problems with mask headgear before not staying on her head. I tries a hybrid full face mask that she felt was comfortable with the small cushion but she again had trouble with it shifting up on her face. I had Ck, [employer] P[employer] Clerk, fit her with a [employer] FX nasal pillows mask, size small cushion. It has a different style of headgear that she felt would not slip on her head. She will try this mask and if it is successful we can change her mask with the DME. I also gave her information on barriers for her other nasal mask as needed to reduce redness/soreness of the skin. I will have her come back in 3 months to see how she is doing with the new mask and to recheck compliance. She voiced understanding and agreement. Patient's apnea severity and rationale for treatment to reduce apnea, improve sleep quality and reduce cardiovascular and cerebrovascular events was reviewed. I also reviewed the benefit of consistent device use of CPAP for gastric reflux, depression, anxiety and fibromyalgia. 2. Obesity, unspecified. Currently patients BMI is 38.9. Obesity increases the risk of apnea, CPAP pressure requirements and overall health risks especially cardiovascular and diabetes. Thus patient is advised to lose weight. * Continue auto CPAP pressure at 10-12 cmH2O * Fitted to a [employer] FX nasal pillows mask, size small cushion * Notify me if snoring with mask or feeling that the pressure is too much or too little * Attempt to lose weight * Call this office if any problems using CPAP * Return for follow up in 3 months, or sooner if concerns arise Counseling Topics: Spare mask, Weight loss health impact Visit Type: In Office Time Spent with Patient (minutes): 29 Provider Statement: I spent 100% of the Face to Face Visit with the patient with greater than 50% spent counseling the patient and coordination of care.
[2023-02-25 15:03] VITALS: BP 120/78
== END 2023-02-25 14:21 | disposition home or self-care (01) ==
LOC: SC 14:20
PROVIDERS: ATTEND Nurse Practitioner Family
DX: G47.33 Obstructive sleep apnea (adult) (pediatric) (principal); E66.9 Obesity, unspecified; Z68.38 Body mass index [BMI] 38.0-38.9, adult
CPT/HCPCS: 99212; 99213

== ENCOUNTER 2023-04-28 18:58 | Outpatient (CLI) | payer OTHER ==
--- NOTE | 2023-04-29 13:43 | Ultrasound Report ---
PROCEDURE: Pelvic w/Transvaginal INDICATIONS: POST MENOPAUSAL BLEEDING TECHNIQUE: Real-time scanning was performed of the pelvic organs, with image documentation. Additional endovagi nal scanning was necessary due to incomplete visualization of the adnexal and endometrial structures by transabdominal scanning. COMPARISON: None available at time of interpretation.. FINDINGS: Uterus: Uterus is anteverted and normal in size at 7.5 x 3.0 x 3.9 cm. The myometrium is homogeneou s. The endometrium measures 4.8 mm in combined thickness. Several punctate echogenic foci associate d with the endometrial complex likely related to residual blood products. Ovaries: The right ovary measures 1.3 x 1.4 x 0.9 cm, with a calculated ovarian volume of 0.9 cc. T he left ovary is not identified. There are no adnexal masses are seen. Other: No pathologic free abd ominal or pelvic fluid. IMPRESSION: 1. Normal endometrial complex at 4.8 mm and there are multiple associated punctate foci likely relate d to residual blood products. 2. Normal appearance of the right ovary left ovary is identified. Reviewed by: DAYNE Hernandez on 04/29/2023 1:42 PM PDT Approved by: Abdulaziz Castillo MD on 04/29/2023 1:42 PM PDT Station ID: [id number]
== END 2023-04-28 18:59 | disposition home or self-care (01) ==
LOC: DI 18:58
PROVIDERS: ATTEND Physician Assistant
DX: N95.0 Postmenopausal bleeding (principal)

== ENCOUNTER 2024-03-17 13:46 | Outpatient (CLI) | payer OTHER ==
[2024-03-17 18:03] LABS: THYROID STIMULATING HORMONE 3.12 uIU/mL (0.34-5.60)
== END 2024-03-17 13:47 | disposition home or self-care (01) ==
LOC: LAB.N 13:46
PROVIDERS: ATTEND Physician Assistant
DX: Z13.29 Encounter for screening for other suspected endocrine disorder (principal)
CPT/HCPCS: 36415; 84439; 84443

== ENCOUNTER 2024-05-10 13:35 | Outpatient (CLI) | payer OTHER ==
[2024-05-10 18:33] LABS: CALCIUM 9.8 mg/dL (8.5-10.3)
== END 2024-05-10 13:36 | disposition home or self-care (01) ==
LOC: LAB.N 13:35
PROVIDERS: ATTEND Physician Assistant
DX: I10 Essential (primary) hypertension (principal)
CPT/HCPCS: 36415; 80048

== ENCOUNTER 2024-05-11 14:55 | Outpatient (CLI) | payer OTHER | END 2024-05-11 14:56 | disposition home or self-care (01) | LOC: DI 14:55 | PROVIDERS: ATTEND Physician Assistant | DX: I31.39 Other pericardial effusion (noninflammatory) (principal); R60.0 Localized edema; I07.1 Rheumatic tricuspid insufficiency | CPT/HCPCS: 93307 ==

== ENCOUNTER 2024-05-11 16:24 | Outpatient (CLI) | payer OTHER ==
--- NOTE | 2024-05-12 14:30 | Ultrasound Report ---
PROCEDURE: Ankle Brachial Index INDICATIONS: BILATERAL CLAUDICATION TECHNIQUE: Ankle-brachial indices were obtained bilaterally and recorded. COMPARISONS: None. FINDINGS: Right ankle brachial index (GORDO): 1.1 Left ankle brachial index (GORDO): 1.3 Healing potential: Ankle pressures >55 mm Hg in non-diabetics and >80 mm Hg in diabetics are likely to achieve primary h ealing of ischemic foot ulcers. Toe pressures >30 mm Hg are likely to achieve primary healing of ischemic foot ulcers, toe or transme tatarsal amputations. IMPRESSION: Normal ankle brachial index. Reviewed by: Mayco Myles MD on 05/12/2024 2:29 PM PDT Approved by: Mayco Myles MD on 05/12/2024 2:29 PM PDT Station ID: [id number]
== END 2024-05-11 16:25 | disposition home or self-care (01) ==
LOC: DI 16:24
PROVIDERS: ATTEND Physician Assistant
DX: I73.9 Peripheral vascular disease, unspecified (principal); I31.39 Other pericardial effusion (noninflammatory); R60.0 Localized edema; I07.1 Rheumatic tricuspid insufficiency
CPT/HCPCS: 93307; 93922